=== PATIENT | male | born 2005 | race Hispanic/Latino ===

== ENCOUNTER 2024-10-02 22:12 | Emergency (ER) | payer OTHER, SELFPAY ==
[2024-10-02 22:20] VITALS: BP 137/82
[2024-10-02 22:52] LABS: COVID-19 Antigen Negative (Negative)
--- NOTE | 2024-10-02 23:06 | ED.GENMED ---
History of Present Illness
General
Chief Complaint: Fever
Source: patient
Exam Limitations: none
Time Seen by Provider: 10/02/24 22:50
History of Present Illness
History of Present Illness:
19yoM with no significant past medical history presenting for evaluation of flu-like symptoms. He has been sick for the past 4 days. He reports subjective fevers, chills, body aches, cough, and congestion. He also feels short of breath. He
denies any vomiting or diarrhea. Patient's boss was sick recently with similar symptoms. He was unable to control him symptoms with [id number] medications so decided to come to the ED.
Phy Exam
General Physical Exam
General Presentation: well appearing and no apparent distress
General age: appears stated age
General Skin: warm and dry
General Habitus: normal
General Mental: alert
ENT Exam
ENT Exam: pharynx normal, neck supple and normocephalic
Cardiovascular Exam
Cardiovascular Exam: regular rate/rhythm and no murmur
Pulmonary Exam
Pulmonary Exam: lungs clear, no respiratory distress, no rales, no crackles and no rhonchi
Neurological Exam
Neurological Exam: alert
[place] Coma Scale
Eye Opening: Spontaneous
Verbal Response: Oriented
Motor Response: Obeys Commands
GCS Total Score: 15
Skin Exam
Skin Exam: normal color and warm/dry
Psychiatric Exam
Psychiatric Exam: normal mood/affect
Course
Orders/Labs/Results
Orders:
Orders
10/02/24 22:22
COVID-19 Antigen Urgent
Source: Nasal Swab
Influenza A+B Rapid Molecular Urgent
[facility]O Source: Nasal Swab
Specimen Description:
Vital Signs
Initial and Last Documented VS:
Initial Vital Signs
Temp Pulse Resp BP Pulse Ox
98.3 F 67 18 137/82 100
10/02/24 22:20 10/02/24 22:20 10/02/24 22:20 10/02/24 22:20 10/02/24 22:20
Last Documented Vital Signs
Temp Pulse Resp BP Pulse Ox
98.1 F 67 20 129/84 98
10/02/24 23:28 10/02/24 23:28 10/02/24 23:28 10/02/24 23:28 10/02/24 23:28
MDM/Problems Addressed
Differential Diagnosis Includes:
19yoM here with flu-like symptoms x 4 days including cough and fever. He reports feeling SOB although oxygen saturation 98-100% during exam. Vitals are stable. He has well-appearing in no acute distress. Lungs clear to auscultation and
respirations nonlabored. Exam is otherwise reassuring. Differential diagnosis includes but is not limited to: Influenza, other viral illness, doubt pneumonia
Viral testing sent in triage and he tested positive for influenza B. Patient is out of the window for Tamiflu. Supportive care discussed including rest, fluids, and antipyretics. He was advised to follow-up with his PCP. Strict ED return
precautions discussed. Patient expressed understanding and is in agreement with plan. He was discharged in stable condition.
*Critical Care Note
Total Time (30-74mins, 75-104mins- exclusive of procedures): Not Applicable
ED Attending Note
-
Portions of this chart may have been created with voice recognition software.� Occasional wrong word or��sound alike� substitutions may have occurred due to the inherent limitations of voice recognition software.
Discharge Plan
Departure
Patient Disposition: Home (Routine Discharge)
Date of Disposition: 10/02/24
Time of Disposition: 23:07
Patient with high blood pressure during this ER visit?: No
Discharge Problem:
Influenza B
Instructions: Flu in adults - ED discharge instructions
Referrals:
[facility] [Provider Group]
[facility] [Outside]
Stand Alone Forms: Return to Work
Activity Restrictions/Additional Instructions:
Drink plenty of fluids and rest. Take Tylenol and ibuprofen for fever/body aches.
Please follow-up with your family doctor. Return to the ER with any new or worsening symptoms including trouble breathing.
Interventions
Interventions:
*Risk Screen - Suicide Last Done: 10/02/24 22:20
*General Assessment Last Done: 10/02/24 22:20
*Neglect/Abuse Screening Last Done: 10/02/24 22:20
*ED- Fall Risk Assessment Last Done: 10/02/24 22:20
*ED COVID-19 Vaccine History Last Done: 10/02/24 22:20
*Nursing Disposition Last Done: 10/02/24 23:28
ED- Neurological Assessment Last Done: 10/02/24 23:06
ED-Skin Assessment Last Done: 10/02/24 23:06
Discharge Date and Time
Discharge Date/Time: 10/02/24 23:31
Print Language: TELUGU
[2024-10-02 23:28] VITALS: BP 129/84
== END 2024-10-02 23:31 | disposition home or self-care (01) ==
LOC: EMR 22:12
PROVIDERS: EMERGENCY PHYSICIAN Emergency Medicine
DX: J10.1 Influenza due to other identified influenza virus with other respiratory manifestations (principal); Z11.52 Encounter for screening for COVID-19
CPT/HCPCS: 99283; 87502; 87811